=== PATIENT | female | born 1940 | race Caucasian/White ===

== ENCOUNTER 2017-04-11 19:00 | Emergency (ER) | payer MEDICARE, BC ==
[2017-04-11] MEDS ORDERED: NORMAL SALINE 1,000 ML IV ONE (19:26)
[2017-04-11] MEDS ORDERED: ONDANSETRON HCL 4 MG/2 ML VIAL ONE (19:26)
--- NOTE | 2017-04-11 21:39 | ER NURSING DOCUMENTATION ---
Nurse's Notes [facility] Name:Celeste Simmons Age:76 yrs Sex:Female :1940 Arrival Date:04/11/2017 Time:19:00 Bed4 Private MD:Milan Granados Diagnosis:Vomiting - Dehydration Presentation: 04/11 19:13 Acuity: HEIDI 3 st 19:15 Presenting complaint: Patient states: I vomited once today and felt bad. My right mk2 shoulder also hurts from carrying laundry yesterday. Transition of care: Home. Notified ED Physician of Dr. Johns notified. Time Last Known Well for the patient was this morning. Care prior to arrival: None. 19:15 Method Of Arrival: Walk In [facility] Triage Assessment: 19:21 General: Appears in no apparent distress, Behavior is cooperative, pleasant. Pain: mk2 Denies pain. Neuro: No deficits noted. Respiratory: Breath sounds are clear bilaterally. GI: Reports vomiting, x1. : Denies burning with urination. Musculoskeletal: Reports pain in R shoulder. Old injury. 19:22 Musculoskeletal: Circulation, motion, and sensation intact Range of motion intact in mk2 all extremities. 19:23 GI: Denies diarrhea. mk2 Historical: - Allergies: Hydrocodone-Acetaminophen (got hot"); - Home Meds: 1. aspirin 81 mg oral tab 1 tab once daily 2. unknown thyroid medicine 3. Cholesterol Relief oral - PMHx: hyperlipidemia; HYPOTHYROIDISM; - PSHx: None; - Tetanus: < 10 years. - Ebola Screening: : Patient negative for fever greater than or equal to 101.5 degrees Fahrenheit, and additional compatible Ebola Virus Disease symptoms. Patient denies exposure to infectious person. Patient denies travel to an Ebola-affected area in the 21 days before illness onset. No symptoms or risks identified at this time. . - Immunization history: Pneumococcal vaccine is up to date, Flu Vaccine < 1 year. - Social history: Smoking status: Patient states former smoker of tobacco. Patient uses alcohol occasionally. Patient/guardian denies using street drugs. Screenin:23 Infectious Disease Risk None. Abuse screen: Denies threats or abuse. Nutritional mk2 screening: No deficits noted. Assessment: 19:23 See Triage Assessment done by same RN. [facility] Vital Signs: 19:23 BP 158 / 99; Pulse 74; Resp 16; Temp 98.7; Pulse Ox 91% on R/A; Weight 53.52 kg; Height mk2 4 ft. 10 in. (147.32 cm); Pain 0/10; 20:48 BP 132 / 69; Pulse 61; Resp 15; Pulse Ox 92% on R/A; Pain 0/10; mk2 21:37 BP 110 / 61; Pulse 88; Resp 15; Pulse Ox 93% on R/A; Pain 0/10; mk2 19:23 Body Mass Index 24.66 (53.52 kg, 147.32 cm) mk2 ED Course: 19:01 Patient arrived in ED. jl 19:02 Milan Granados MD is Private Physician. jl 19:[address] 19:15 Domenica Gonzalez, RN is Primary Nurse. mk2 19:17 Kash Johns MD is Attending Physician. tl1 19:23 Arm band placed on Bed in low position Call Light in Reach Gowned HOB Elevated Side mk2 rails up x2. 19:23 Inserted peripheral IV: 20 gauge in left antecubital area and blood collected. mk2 20:46 Urine collected. Clean catch specimen. mk2 20:50 Milan Granados MD is Referral Physician. tl1 20:59 Resting quietly. Pt states she is feeling much better. mk2 21:38 Valuables Remains with patient. mk2 Administered Medications: 19:24 Drug: Zofran 4 mg; Route: IVP; Infused Over: 2 mins; Site: left antecubital; mk2 19:50 Follow up: Response: Nausea is decreased mk2 19:24 Drug: NS 0.9% 1000 ml; Route: IV; Rate: bolus; Site: left antecubital; mk2 20:46 Follow up: IV Status: Completed infusion; IV Intake: 1000ml mk2 20:46 Drug: NS 0.9% 1000 ml; Route: IV; Rate: bolus; Site: left antecubital; mk2 21:37 Follow up: IV Status: Completed infusion; IV Intake: 1000ml mk2 Point of Care Testing: Urine Dip: 20:46 pH: 6.5; ; Specific [place]: 1.020; Ketones: 3 mg/dL; Glucose: Negative; Protein: 1 mk2 mg/dL; Leukocytes: Negative; Nitrite: Negative ; Blood: Non Hemolyzed Trace; Bilirubin: Negative ; Urobilinogen: Normal Intake: 20:46 IV: 1000ml; Total: 1000ml. mk2 21:37 IV: 1000ml; Total: 2000ml. 2 Outcome: 20:50 Discharge ordered by . tl1 21:37 Discharged to home ambulatory. mk2 21:37 Condition: good 21:37 Discharge instructions given to patient, Instructed on discharge instructions, follow up and referral plans. medication usage, Prescriptions given X 1. 21:37 IV D/Brando 21:38 Patient left the ED. 2 04/12 10:39 Discharge F/U Call: Spoke with: patient. other: Name: pt states she is feeling sick st still but no long vomiting and she is able to keep food down this AM. Signatures: Sarah Burnette, RN Domenica Curry RN RN mk2 Kash Johns MD MD tl1 Ariel Fung
--- NOTE | 2017-04-11 21:39 | ER PHYSICIAN DOCUMENTATION ---
Physician Documentation [facility] Name:Celeste Simmons Age:76 yrs Sex:Female :1940 Arrival Date:04/11/2017 Time:19:00 Bed4 Private MD:Milan Granados ED Nat Kash Disposition: 04/13 05:38 Chart complete. tl1 Disposition: 04/11/17 20:50 Discharged to Home/Self Care. Impression: Vomiting - Dehydration. - Condition is Good. - Discharge Instructions: DEHYDRATION (6y-Adult), VOMITING (6y-Adult). - Prescriptions for Zofran 4 mg Oral Tablet - take 1-2 tablet by ORAL route every 4-6 hours As needed; 10 tablet. - Medical Reconciliation form form. - Follow up: Milan Granados MD; When: 1 - 2 days; Reason: Recheck today's complaints, Continuance of care. - Problem is new. - Symptoms have improved. HPI: 04/11 19:17 This 76 yrs old Female presents to ER with complaints of Nausea/Vomiting. tl1 19:17 This 76 yrs old Female presents to ER via Walk In with complaints of tl1 Nausea/Vomiting. 19:17 The patient presents to the emergency department with nausea, with vomiting, 1 times tl1 since the onset of symptoms. Onset: The symptom(s)/episode began/occurred gradually, this morning. She awakened and felt fine, but after lunch, developed nausea and vomited once. No diarrhea. She then took a nap and on awakening, still felt ill. She then developed several more episodes of vomiting and now presents to the ED for evaluation. She denied abdominal pain, fever, melena, hematochezia or hematemesis. She denied h/o gall bladder disease, No prior abdominal surgeries. No headache. No chest pain, palpitations, dyspnea.. Historical: - Allergies: Hydrocodone-Acetaminophen (got hot"); - Home Meds: 1. aspirin 81 mg oral tab 1 tab once daily 2. unknown thyroid medicine 3. Cholesterol Relief oral - PMHx: hyperlipidemia; HYPOTHYROIDISM; - PSHx: None; - Tetanus: < 10 years. - Ebola Screening: : Patient negative for fever greater than or equal to 101.5 degrees Fahrenheit, and additional compatible Ebola Virus Disease symptoms. Patient denies exposure to infectious person. Patient denies travel to an Ebola-affected area in the 21 days before illness onset. No symptoms or risks identified at this time. . - Immunization history: Pneumococcal vaccine is up to date, Flu Vaccine < 1 year. - Social history: Smoking status: Patient states former smoker of tobacco. Patient uses alcohol occasionally. Patient/guardian denies using street drugs. ROS: 19:30 Constitutional: Negative for fever, chills, and weight loss. tl1 Cardiovascular: Negative for chest pain, palpitations, and edema. 19:30 Respiratory: Negative for shortness of breath, cough, wheezing, and pleuritic chest tl1 pain. 19:30 Abdomen/GI: Negative for abdominal pain, diarrhea, constipation, abdominal distension, hematemesis, black/tarry stool, rectal bleeding. 19:30 : Negative for urinary symptoms. 19:30 All other systems are negative. Exam: 19:25 Constitutional: The patient appears alert, awake, non-toxic, well developed, well tl1 hydrated, well groomed, well nourished. 19:25 Head/face: Exam is negative for acute changes. 19:25 ENT: Mouth: no acute changes, Oral mucosa: pink and intact, moist, Posterior pharynx: is normal. 19:25 Neck: ROM/movement: is normal, is supple. 19:25 Cardiovascular: Rate: normal, Rhythm: regular, Heart sounds: normal, Edema: is not appreciated. 19:25 Respiratory: Respirations: normal, Breath sounds: are normal. 19:25 Abdomen/GI: Inspection: abdomen appears normal, Bowel sounds: active, Palpation: soft, mild abdominal tenderness, in the epigastric area, mass, is not appreciated, rebound tenderness, is not appreciated, voluntary guarding, is not appreciated, no appreciated organomegaly. 19:25 Back: CVA tenderness, is absent. Vital Signs: 19:23 BP 158 / 99; Pulse 74; Resp 16; Temp 98.7; Pulse Ox 91% on R/A; Weight 53.52 kg; Height mk2 4 ft. 10 in. (147.32 cm); Pain 0/10; 20:48 BP 132 / 69; Pulse 61; Resp 15; Pulse Ox 92% on R/A; Pain 0/10; mk2 21:37 BP 110 / 61; Pulse 88; Resp 15; Pulse Ox 93% on R/A; Pain 0/10; mk2 19:23 Body Mass Index 24.66 (53.52 kg, 147.32 cm) mk2 MDM: 19:17 Patient medically screened. tl1 20:30 Differential diagnosis: gastritis, cholecystitis, appendicitis, diverticulitis, viral tl1 gastroenteritis, PUD. Data reviewed: vital signs, nurses notes, old medical records, lab test result(s), urinalysis, and as a result, I will discharge patient. Counseling: I had a detailed discussion with the patient and/or guardian regarding: the historical points, exam findings, and any diagnostic results supporting the discharge/admit diagnosis, lab results, the need for outpatient follow up, to return to the emergency department if symptoms worsen or persist or if there are any questions or concerns that arise at home. Medication response: The patient's symptoms have improved, Esteban, NS. Response to treatment: the patient's symptoms have markedly improved after treatment, and as a result, I will discharge patient. Special discussion: Her symptoms are non specific but she does not appear to have worrisome [employer] REPA[employer]ER PNEUMATIC, cardiovascular or GI disease at this time. U/A does not suggest infection. She may have gastritis, PUD, or be very early in the course of something more serious. I think she is safe to go home with close follow up.. Dispensed Medications: 19:24 Drug: Zofran 4 mg; Route: IVP; Infused Over: 2 mins; Site: left antecubital; mk2 19:50 Follow up: Response: Nausea is decreased mk2 19:24 Drug: NS 0.9% 1000 ml; Route: IV; Rate: bolus; Site: left antecubital; mk2 20:46 Follow up: IV Status: Completed infusion; IV Intake: 1000ml mk2 20:46 Drug: NS 0.9% 1000 ml; Route: IV; Rate: bolus; Site: left antecubital; mk2 21:37 Follow up: IV Status: Completed infusion; IV Intake: 1000ml mk2 Point of Care Testing: Urine Dip: 20:46 pH: 6.5; ; Specific [place]: 1.020; Ketones: 3 mg/dL; Glucose: Negative; Protein: 1 mk2 mg/dL; Leukocytes: Negative; Nitrite: Negative ; Blood: Non Hemolyzed Trace; Bilirubin: Negative ; Urobilinogen: Normal Signatures: Domenica Gonzalez, RN RN mk2 Kash Johns MD MD tl1
== END 2017-04-11 21:39 | disposition home or self-care (01) ==
LOC: ER 19:00
DX: E86.0 Dehydration (principal); R11.2 Nausea with vomiting, unspecified; Z79.82 Long term (current) use of aspirin; Z79.899 Other long term (current) drug therapy
CPT/HCPCS: 96361; 96374; 99283; 99284; J2405; J7030